=== PATIENT | female | born 1940 | race Caucasian/White ===

== ENCOUNTER → 2017-05-03 | Outpatient (CLI) | payer OTHER, BC | LOC: FIMAGING 13:23 | PROVIDERS: ATTEND Physician Assistant Medical | DX: Z12.31 Encounter for screening mammogram for malignant neoplasm of breast (principal); Z85.3 Personal history of malignant neoplasm of breast; Z90.11 Acquired absence of right breast and nipple | CPT/HCPCS: G0202-52 ==

== ENCOUNTER → 2017-06-07 | Outpatient (CLI) | payer OTHER, BC | LOC: BMCIMAGING 14:35 | PROVIDERS: ATTEND Physician Assistant Medical | DX: Z13.820 Encounter for screening for osteoporosis (principal); M85.89 Other specified disorders of bone density and structure, multiple sites ==

== ENCOUNTER → 2018-05-04 | Outpatient (CLI) | payer OTHER, BC | LOC: FIMAGING 13:34 | PROVIDERS: ATTEND Physician Assistant Medical | DX: Z12.31 Encounter for screening mammogram for malignant neoplasm of breast (principal); Z85.3 Personal history of malignant neoplasm of breast; Z90.11 Acquired absence of right breast and nipple ==

== ENCOUNTER 2018-07-12 07:40 | Emergency (ER) | payer OTHER, BC ==
[2018-07-12] MEDS ORDERED: IBUPROFEN 600 MG TAB PO ONE (08:18)
--- NOTE | 2018-07-12 08:18 | EDPHY ---
H & P Time Seen by Provider: 07/12/18 08:03 HPI/ROS: HPI Left wrist injury. 78-year-old female by private vehicle with her daughter. This patient is right- hand dominant. This patient was hiking yesterday. She stepped in a puddle that had some ice in it. She slipped, fell backwards onto an outstretched left hand. She complains of isolated left wrist pain. She describes this as located dorsal aspect, radial aspect of the left wrist. She denies any other injury or complaint. She did not hit her head. No loss of sensation or weakness in her extremities. No other extremity pain. She is not on anticoagulation or antiplatelet agents. ROS: Constitutional: No fever, no chills. No weakness. Respiratory: No cough. No shortness of breath. Cardiac: No chest pain, no palpitations. Gastrointestinal: No abdominal pain, no vomiting, no diarrhea. Musculoskeletal: No back pain. No neck pain. As above. Skin: No lacerations or abrasions. Neurological: No headache. No focal weakness or altered sensation. Past medical history: Definitive mastectomy. Osteopenia. Social history: Nonsmoker. Here with her daughter. No alcohol. Physical Exam: General Appearance: Alert, no distress. This patient is responding to questions appropriately and in full sentences. This patient appears well- hydrated and well-nourished. Head: Normocephalic atraumatic. Eyes: Pupils equal and round no pallor or injection. No lid edema, erythema or injection. Left hand and wrist exam: She does have some mild swelling over the dorsal radial aspect of the distal left wrist. There is associated faint ecchymosis which migrates up the radial aspect of her forearm to the approximate mid forearm. There is no significant warmth. She does have some pain with axial compression of her left thumb as well as some snuffbox tenderness on palpation. The bony aspects of the hand are nontender on palpation. She has normal capillary refill in all of her distal digits of the left hand. The left hand is neurovascularly intact. There are no obvious lacerations or abrasions. The skin is intact. Neurological: Motor sensory function is grossly intact. Cranial nerves are normal. Gait is normal. Skin: Warm and dry, no rashes. Musculoskeletal: Neck is supple and nontender. Extremities are symmetrical. All joints range without pain or impingement. Psychiatric: No agitation. No depression. Database: EKG: Imaging: Left wrist x-ray series: Osteopenia. Degenerative changes. No fracture, subluxation, dislocation appreciated. Interpreted by me. I also reviewed this study with staff radiologist Dr. Norbert Macias who agrees with my interpretation. Procedures: Emergency department course: Triage vital signs reviewed. She is mildly hypertensive. Vital signs are otherwise normal. 8:35 a.m., the patient was re-evaluated, resting comfortably at this time. Results of her x-rays were discussed with her and her daughter. Plan will be to place the left wrist and hand in a Velcro thumb spica wrist splint. I will then have her follow up with Orthopedics for re-evaluation and more advanced imaging if appropriate. Both she and her daughter air in agreement with this plan. I discussed ibuprofen dosing. I discussed narcotic pain medication dosing. I will give her a small prescription for Vicodin to be taken only as needed. They are in agreement with this plan. Return to emergency department precautions were reviewed. All of their questions were answered. The patient was discharged home in good condition with her daughter. Differential Diagnosis: The differential diagnosis on this patient includes but is not limited to fracture, sprain, dislocation of the left wrist. This represents a partial list of diagnoses considered. These considerations are based on history, physical exam, past history, reassessment and diagnostic testing. Smoking Status: Never smoked Constitutional: Initial Vital Signs Temperature (C) 36.7 C 07/12/18 07:47 Heart Rate 78 07/12/18 07:47 Respiratory Rate 16 07/12/18 07:47 Blood Pressure 153/90 H 07/12/18 07:47 O2 Sat (%) 98 07/12/18 07:47 O2 Delivery Mode Room Air Allergies/Adverse Reactions: No Allergies [NKDA] Allergy (Verified 10/02/11 11:06) Home Medications: Medication Instructions Recorded Aspirin [Aspirin 81mg (OTC)] 81 mg PO DAILY 12/08/11 Calcium Citrate [Calcitrate] 500 mg PO BID 12/08/11 Cholecalciferol Vit D3 [Vitamin D3 800 units PO BID 12/08/11 400 units (OTC)] Herbal/Supplements 12/08/11 Multivitamins [Multivitamin (OTC)] 1 each PO DAILY 12/08/11 Hydrocodone/APAP 5/325 [Holderness 1 - 2 tab PO Q4-6PRN PRN #7 tab 07/12/18 5/325 (*)] Medical Decision Making - Diagnostics Imaging Results: Imaging Impressions Wrist X-Ray 07/12/18 07:53 Impression: 1. Bone demineralization. 2. Multicentric degenerative osteoarthritic features, as-detailed. 3. Scapholunate diastasis. 4. Negative ulnar variance. 5. The patient reportedly is most tender over the distal dorsal radial aspect of the wrist, with no convincing fracture identified. Consider conservative management and short-term repeat radiographic follow-up in 7-14 days, unless otherwise clinically indicated. Findings were discussed with Zak Curry MD at 8:35, on 07/12/2018. - Data Points Medications Given: Discontinued Medications Ibuprofen (Motrin) 600 mg PO EDNOW ONE Stop: 07/12/18 08:19 Last Admin: 07/12/18 08:39 Dose: 600 mg Departure - Departure Disposition: Home, Routine, Self-Care Clinical Impression: Left wrist injury, Left wrist sprain Condition: Good Instructions: R.I.C.E. Treatment (ED), Wrist Sprain (ED) Additional Instructions: Read and follow provided instructions. Follow-up with Orthopedics, Dr. Rei Martin or 1 of his partners, in 1-2 days for re-evaluation. Call their office today for appointment time. Explained this is for an emergency department follow-up for your left wrist injury. Ibuprofen dosin mg every 6 hours with meals for the next 3 days only. Take only as needed for pain. Narcotic pain medication dosin-2 every 4-6 hours only as needed for pain. Return to the emergency department for worsening pain, swelling, discoloration, loss of sensation or weakness or other serious concerns. Referrals: Rei Martin MD [Medical Doctor] - As per Instructions Prescriptions: Hydrocodone/APAP 5/325 [Holderness 5/325 (*)] 1 - 2 tab PO Q4-6PRN PRN #7 tab PRN Reason: Pain, Moderate
[2018-07-12 09:01] VITALS: BP 128/78
== END 2018-07-12 09:07 | disposition home or self-care (01) ==
DX: S63.502A Unspecified sprain of left wrist, initial encounter (principal); W00.2XXA Other fall from one level to another due to ice and snow, initial encounter; Y93.01 Activity, walking, marching and hiking; Y92.828 Other wilderness area as the place of occurrence of the external cause